=== PATIENT | female | born 1955 | race Two or more races ===

== ENCOUNTER 2019-12-09 15:03 | Inpatient (IN) | payer MEDICAID ==
[~2019-12-09] VITALS: Ht 152.4 cm; Wt 77.1 kg
[2019-12-09 15:22] VITALS: Ht 152.4 cm; Wt 77.1 kg
[2019-12-09 16:55] LABS: BASOPHIL % 0.2 % (0-2); PLATELET COUNT 196 x10^3mcL (130-400); RED CELL DISTRIBUTION WIDTH 14.2 % (11.5-14.5)
[2019-12-09 17:12] LABS: CALCIUM 9.1 mg/dL (8.5-10.1); CARBON DIOXIDE 27.9 mmol/L (21-32); CHLORIDE SERUM 102 mmol/L (98-107); CREATININE SERUM 0.6 mg/dL (0.6-1.0); GFR1 > 60 mL/min; GLUCOSE SERUM 159 mg/dL (74-106); POTASSIUM SERUM 3.9 mmol/L (3.5-5.1); SODIUM SERUM 138 mmol/L (136-145)
[2019-12-09 17:17] LABS: ALBUMIN 3.8 g/dL (3.4-5.0); ALKALINE PHOSPHATASE 69 U/L (46-116); ALT/SGPT 36 U/L (14-59); AST/SGOT 18 U/L (15-37); BILIRUBIN TOTAL 0.7 mg/dL (0.20-1.00); TOTAL PROTEIN, SERUM 8.1 g/dL (6.4-8.2)
[2019-12-09] MEDS ORDERED: FORTAMET1000 MG PO (18:26)
[2019-12-09 20:04] LABS: CHOLESTEROL/HDL RATIO 3.9
[2019-12-09 20:09] LABS: T3 TOTAL 1.73 ng/mL
[2019-12-09 20:46] LABS: FREE T4 1.12 ng/dL (0.76-1.46); FREE THYROXINE INDEX 2.9 ug/dL (1.4-4.5); T4(THYROXINE) 10.2 ug/dL (4.7-13.3)
[2019-12-09 21:48] VITALS: BP 117/67
[2019-12-10 04:42] LABS: UA SPECIFIC GRAVITY >=1.030 (1.005-1.035); microscopic required? YES; urine erythrocyte NEGATIVE (NEGATIVE)
[2019-12-10 05:00] VITALS: BP 147/75
[2019-12-10 05:07] LABS: AMPHETAMINE QUAL UR NONE DETECTED (See below)
[2019-12-10 06:48] LABS: CALCIUM 8.6 mg/dL (8.5-10.1); CARBON DIOXIDE 27.7 mmol/L (21-32); CHLORIDE SERUM 103 mmol/L (98-107); CREATININE SERUM 0.6 mg/dL (0.6-1.0); GFR1 > 60 mL/min; GLUCOSE SERUM 140 mg/dL (74-106); POTASSIUM SERUM 3.8 mmol/L (3.5-5.1); SODIUM SERUM 140 mmol/L (136-145)
[2019-12-10 07:01] LABS: BASOPHIL % 0.2 % (0-2); PLATELET COUNT 191 x10^3mcL (130-400)
[2019-12-10 09:52] VITALS: BP 131/82
[2019-12-10 12:11] VITALS: BP 168/95
[2019-12-10 17:59] VITALS: BP 127/95
[2019-12-10 20:21] VITALS: BP 146/84
[2019-12-11 05:31] VITALS: BP 144/83
[2019-12-11 06:12] LABS: BASOPHIL % 0.2 % (0-2); PLATELET COUNT 186 x10^3mcL (130-400); RED CELL DISTRIBUTION WIDTH 14.3 % (11.5-14.5)
[2019-12-11 07:19] LABS: CALCIUM 8.3 mg/dL (8.5-10.1); CARBON DIOXIDE 24.7 mmol/L (21-32); CHLORIDE SERUM 105 mmol/L (98-107); CREATININE SERUM 0.5 mg/dL (0.6-1.0); GFR1 > 60 mL/min; GLUCOSE SERUM 152 mg/dL (74-106); MAGNESIUM 1.9 mg/dL (1.8-2.4); PHOSPHOROUS 3.5 mg/dL (2.5-4.9); SODIUM SERUM 140 mmol/L (136-145)
[2019-12-11 08:31] VITALS: BP 148/67
[2019-12-11 13:16] VITALS: BP 128/80
[2019-12-11 15:58] VITALS: BP 129/68
[2019-12-11 20:16] VITALS: BP 105/57
[2019-12-12 05:34] VITALS: BP 144/71
[2019-12-12 06:35] LABS: BASOPHIL % 0.1 % (0-2); PLATELET COUNT 173 x10^3mcL (130-400); RED CELL DISTRIBUTION WIDTH 14.2 % (11.5-14.5)
[2019-12-12 07:11] LABS: CALCIUM 8.5 mg/dL (8.5-10.1); CARBON DIOXIDE 26.8 mmol/L (21-32); CHLORIDE SERUM 106 mmol/L (98-107); CREATININE SERUM 0.6 mg/dL (0.6-1.0); GFR1 > 60 mL/min; GLUCOSE SERUM 134 mg/dL (74-106); MAGNESIUM 1.8 mg/dL (1.8-2.4); PHOSPHOROUS 3.4 mg/dL (2.5-4.9); POTASSIUM SERUM 3.6 mmol/L (3.5-5.1); SODIUM SERUM 142 mmol/L (136-145)
[2019-12-12 07:15] VITALS: BP 144/71
[2019-12-12 08:30] VITALS: BP 123/68
[2019-12-12 12:52] VITALS: BP 132/77
[2019-12-12 16:35] VITALS: BP 140/69
[2019-12-12 20:54] VITALS: BP 115/71
[2019-12-13 06:37] VITALS: BP 108/53
[2019-12-13 09:09] VITALS: BP 127/73
[2019-12-13 17:01] VITALS: BP 129/74
[2019-12-13 22:18] VITALS: BP 178/77
[2019-12-13 22:27] VITALS: BP 136/64
[2019-12-14 05:57] VITALS: BP 120/58
[2019-12-14 08:32] VITALS: BP 138/57
[2019-12-14] MEDS ORDERED: SIMETHICONE80 MG CH (10:14)
[2019-12-14] MEDS ORDERED: MOT800 PO (10:14)
[2019-12-14 10:20] VITALS: BP 138/57
[2019-12-14 12:10] VITALS: BP 133/98
== END 2019-12-14 13:50 | disposition home or self-care (01) | DRG 230 ==
LOC: ED 15:03 → MU 19:17
PROVIDERS: Emergency Medicine; Surgery; ADMIT Family Medicine
PROC: 0WQF0ZZ Repair Abdominal Wall, Open Approach (ICD-10-PCS; 2019-12-11)
PROC: 0WJG4ZZ Inspection of Peritoneal Cavity, Percutaneous Endoscopic Approach (ICD-10-PCS; 2019-12-11)
PROC: 0DQ80ZZ Repair Small Intestine, Open Approach (ICD-10-PCS; principal; 2019-12-11 12:00)
DX: K43.0 Incisional hernia with obstruction, without gangrene (principal); E11.65 Type 2 diabetes mellitus with hyperglycemia; R16.0 Hepatomegaly, not elsewhere classified; K20.9 Esophagitis, unspecified; K57.30 Diverticulosis of large intestine without perforation or abscess without bleeding; M51.37 Other intervertebral disc degeneration, lumbosacral region; J45.909 Unspecified asthma, uncomplicated; W10.8XXA Fall (on) (from) other stairs and steps, initial encounter; E03.9 Hypothyroidism, unspecified; Z68.33 Body mass index [BMI] 33.0-33.9, adult; Z79.84 Long term (current) use of oral hypoglycemic drugs; Y93.89 Activity, other specified; Y92.098 Other place in other non-institutional residence as the place of occurrence of the external cause; Y99.8 Other external cause status; Z88.0 Allergy status to penicillin; Z79.899 Other long term (current) drug therapy; Z53.31 Laparoscopic surgical procedure converted to open procedure
CPT/HCPCS: 82962; 83880; 84439; 90658; 90732; 94150; 97116-GP; C9113; G0378; J1170; J1885; J1956; J2250; J2270; J2405; J3010; J3490; J7030; J7042; Q0092; Q0162